=== PATIENT | male | born 1990 | race Caucasian/White ===

== ENCOUNTER → 2017-04-26 | Outpatient (CLI) | payer OTHER ==
--- NOTE | 2017-04-27 00:40 | MR ---
EXAMINATION TYPE: MR lumbar spine wo con DATE OF EXAM: 04/26/2017 COMPARISON: NONE HISTORY: Low back pain with Right leg painfor 2 months TECHNIQUE: Multiplanar, multisequence images of the lumbar spine were acquired. Lumbar vertebra have normal alignment. Disc spaces are fairly well-maintained. Lumbar nerve roots bessie ear normal. There is no compression fracture. There is posterior disc herniation at L5-S1 into the sp inal canal centrally and towards the right side. The lumbar neural foramina are fairly well-maintaine d. There is no paraspinal mass. I see no focal bone destruction. Sacroiliac joints appear intact. IMPRESSION: There is a small posterior central and right-sided L5-S1 lumbar disc herniation that could be clinica lly significant in this patient with right-sided leg pain. The lower lumbar spinal canal is somewhat small in this patient is probably at increased risk for acq uired spinal stenosis.
== END | disposition home or self-care (01) ==
LOC: RADMRIMAIN 19:52
PROVIDERS: ATTEND Physician Assistant
DX: M51.27 Other intervertebral disc displacement, lumbosacral region (principal)
CPT/HCPCS: 72148

== ENCOUNTER 2017-06-16 21:45 | Emergency (ER) | payer OTHER ==
[2017-06-16 22:04] VITALS: BP 148/99; PULSE 80; RESP 18; TEMP 98.3
[2017-06-16] MEDS ORDERED: methylPREDNISolone SOD SUCCI 125 MG/2 ML VIAL IM STA (22:24)
[2017-06-16] MEDS ORDERED: KETOROLAC 60 MG/2 ML VIAL IM STA (22:24)
[2017-06-16] MEDS ORDERED: ORPHENADRINE 30 MG/ML 2 ML VIAL IM STA (22:24)
--- NOTE | 2017-06-16 22:32 | ED ---
General Adult HPI - General Chief complaint: Back Pain/Injury Stated complaint: sciatic nerve pain Time Seen by Provider: 06/16/17 22:09 Source: patient, RN notes reviewed Mode of arrival: wheelchair Limitations: no limitations - History of Present Illness Initial comments: 26 yo male presents to the ER with cc of flare up of his back pain. Patient has been dealing with this back pain for the last few months. He states he has been to physicial therapy, had an MRI, and is currently waiting for an injection. He states he went to move a trailer tonight and his back pain flared up. He states that it shoots down his right leg. Patient states movement or lying makes it worse. Patient denies any loss of bowel or bladder function. There has been no specific trauma to the area. Patient states his home medications were not helping with the pain so he came here to be seen. Patient denies any other symptoms at this time. Patient denies any recent fever, chills, shortness of breath, chest pain, abdominal pain, nausea vomiting, dysuria or hematuria, constipation or diarrhea, headaches or visual changes, or any other current symptoms. - Related Data Previous Rx's Medication Instructions Recorded Orphenadrine [Norflex] 100 mg PO Q12H #10 tablet.er 06/16/17 predniSONE 50 mg PO DAILY #5 tab 06/16/17 Allergies Allergy/AdvReac Type Severity Reaction Status Date / Time No Known Allergies Allergy Verified 06/16/17 22:04 Review of Systems ROS Statement: Those systems with pertinent positive or pertinent negative responses have been documented in the HPI. ROS Other: All systems not noted in ROS Statement are negative. Past Medical History Additional Past Medical History / Comment(s): chronic back pain History of Any Multi-Drug Resistant Organisms: None Reported Past Surgical History: No Surgical Hx Reported Past Psychological History: No Psychological Hx Reported Smoking Status: Never smoker Past Alcohol Use History: Occasional Past Drug Use History: None Reported General Exam Limitations: no limitations General appearance: alert, in no apparent distress Neck exam: Present: normal inspection. Absent: tenderness, meningismus, lymphadenopathy Respiratory exam: Present: normal lung sounds bilaterally. Absent: respiratory distress, wheezes, rales, rhonchi, stridor Cardiovascular Exam: Present: regular rate, normal rhythm, normal heart sounds. Absent: systolic murmur, diastolic murmur, rubs, gallop, clicks Back exam: Present: normal inspection, full ROM, other (positive right leg raise ). Absent: tenderness Neurological exam: Present: alert, oriented X3 Psychiatric exam: Present: normal affect, normal mood Skin exam: Present: warm, dry, intact, normal color. Absent: rash Course Vital Signs 06/16/17 22:01 Temperature 98.3 F Pulse Rate 80 Respiratory 18 Rate Blood Pressure 148/99 O2 Sat by Pulse 98 Oximetry Medical Decision Making - Medical Decision Making 26-year-old male presents for what appears to be a flareup of his chronic back pain. Radiation of the right leg. This and was given injection he has had improvement. We'll start him on steroids and muscle relaxers for home. We discussed return parameters and follow-up and all questions. He stated he understood and he is agreement this plan. This time he will be discharged home. Disposition Clinical Impression: Sciatica, right side Disposition: HOME SELF-CARE Condition: Stable Instructions: Sciatica (ED), Lumbar Radiculopathy (ED) Additional Instructions: Please use medication as discussed. Please follow up with family doctor if symptoms have not improved over the next two days. Please return to the emergency room if your symptoms increase or worsen or for any other concerns. Prescriptions: Orphenadrine [Norflex] 100 mg PO Q12H #10 tablet.er predniSONE 50 mg PO DAILY #5 tab Referrals: Rakesh Reddy Jr, DO [Primary Care Provider] - 1-2 days Time of Disposition: 23:12
[2017-06-16] MEDS ORDERED: HYDROmorphone 1 MG/ML 1 ML SYRINGE IM STA (22:56)
[2017-06-16] MEDS ORDERED: HYDROmorphone 2 MG/ML 1 ML SYRINGE IM STA ×2 (23:02)
== END 2017-06-16 23:12 | disposition home or self-care (01) ==
LOC: EC 21:45
DX: M54.31 Sciatica, right side (principal)
CPT/HCPCS: 99283; 96372 ×4; J1170; J2360; J2930; J1885

== ENCOUNTER → 2017-07-29 | Outpatient (CLI) | payer OTHER ==
[2017-07-29 13:22] LABS: Basophils % (A) 1 %; Eosinophils # (A) 0.1 k/uL (0-0.7); Eosinophils % (A) 1 %; HCT 45.2 % (39.0-53.0); HGB 14.7 gm/dL (13.0-17.5); Lymphocytes # (A) 2.2 k/uL (1.0-4.8); Lymphocytes % (A) 30 %; MCHC 32.5 g/dL (31.0-37.0); MCV 92.2 fL (80.0-100.0); Mean Platelet Volume 6.8; Monocytes # (A) 0.6 k/uL (0-1.0); Monocytes % (A) 8 %; Neutrophils # (A) 4.2 k/uL (1.3-7.7); Neutrophils % (A) 58 %; Platelet Count 281 k/uL (150-450); RDW 11.4 % (11.5-15.5); WBC 7.2 k/uL (3.8-10.6)
--- NOTE | 2017-07-29 13:41 | XR ---
EXAMINATION TYPE: XR chest 2V DATE OF EXAM: 07/29/2017 COMPARISON: NONE TECHNIQUE: PA and lateral views submitted. HISTORY: Presurgical FINDINGS: The lungs are clear and there is no pneumothorax, pleural effusion, or focal pneumonia. IMPRESSION: 1. No acute process.
[2017-07-29 13:43] LABS: Anion Gap 12 mmol/L; Appearance,Urine Clear (Clear); Bilirubin,Urine Negative (Negative); Blood Urea Nitrogen 14 mg/dL (9-20); Blood,Urine Negative (Negative); Calcium 9.8 mg/dL (8.4-10.2); Carbon Dioxide 29 mmol/L (22-30); Chloride 101 mmol/L (98-107); Color,Urine Yellow; Glucose 97 mg/dL (74-99); Glucose,Urine (UA) Negative (Negative); Ketones,Urine Negative (Negative); Leukocyte Esterase,Urine Negative (Negative); Nitrite,Urine Negative (Negative); PH, Urine 7.5 (5.0-8.0); Potassium 5.1 mmol/L (3.5-5.1); Protein,Urine Trace (Negative); Sodium 142 mmol/L (137-145); Specific Gravity,Urine 1.016 (1.001-1.035); Urobilinogen,Urine <2.0 mg/dL (<2.0)
[2017-07-29 13:45] LABS: INR 1.2 (<1.2); Partial Thromboplastin Time 24.5 sec (22.0-30.0); Prothrombin Time 11.1 sec (9.0-12.0)
== END | disposition home or self-care (01) ==
LOC: LABPAT 12:25
PROVIDERS: ATTEND Orthopaedic Surgery Orthopaedic Surgery of the Spine
DX: Z01.812 Encounter for preprocedural laboratory examination (principal); M51.27 Other intervertebral disc displacement, lumbosacral region
CPT/HCPCS: 36415; 71046; 80048; 81003; 85025; 85610; 85730; 86850; 86900; 86901; 93005

== ENCOUNTER 2017-08-01 13:17 | Day surgery (SDC) | payer OTHER ==
[2017-07-27 11:25] VITALS: BMI 30.1
[~2017-08-01 13:17] MED LIST: BACITRACIN 50,000 UNIT, POLYMYXIN B 500,000 UNIT in SODIUM CHLORIDE 0.9% IRRIGATIO 1,00... IRRIGATION ONE; DEXAMETHASONE SOD PHOSPHATE 10 MG/ML 1 ML VIAL IV ONE; HYDROmorphone 0.5 MG/0.5 ML SYRINGE IVP PRN; LACTATED RINGERS 1,000 ML IV ONE; LACTATED RINGERS 1,000 ML IV SCH; ONDANSETRON 4 MG/2 ML VIAL IVP ONE; ceFAZolin IN SWFI 2 GM/20 ML SYRINGE IVP ONE
[2017-08-01 13:36] VITALS: RESP 16
[2017-08-01] MEDS ORDERED: LIDOCAINE 1% 20 ML VIAL (10MG/ML) FOR IV START INTRADERMA ONE (13:45)
[2017-08-01] MEDS ORDERED: ONDANSETRON 4 MG/2 ML VIAL IVP ONE (13:47)
[2017-08-01] MEDS ORDERED: DEXAMETHASONE SOD PHOS (MDV) 100 MG/10 ML VIAL IV ONE (13:49)
[2017-08-01] MEDS ORDERED: PROPOFOL 10 MG/ML 20 ML VIAL IV ONE (15:16)
[2017-08-01] MEDS ORDERED: fentaNYL (PF) 50 MCG/ML 2 ML AMP ONE (15:16)
[2017-08-01] MEDS ORDERED: LIDOCAINE 1% INJ 10MG/ML (20 ML MDV) ONE (15:16)
[2017-08-01] MEDS ORDERED: PHENYLEPHRINE-0.9% NACL SYG 1 MG/10 ML SYRINGE ONE (15:16)
[2017-08-01] MEDS ORDERED: ePHEDrine SULFATE/0.9% NACL/PF 50 MG/5 ML SYRINGE IV ONE (15:16)
[2017-08-01] MEDS ORDERED: ROCURONIUM BROMIDE 10 MG/ML 10 ML VIAL IV ONE (15:16)
[2017-08-01] MEDS ORDERED: MIDAZOLAM 2 MG/2 ML VIAL ONE (15:16)
[2017-08-01] MEDS ORDERED: GLYCOPYRROLATE 0.2 MG/ML 2 ML VIAL ONE (15:16)
[2017-08-01] MEDS ORDERED: NEOSTIGMINE 1 MG/ML 10 ML VIAL ONE (15:16)
[2017-08-01] MEDS ORDERED: SUCCINYLCHOLINE CHLORIDE 100 MG/5 ML SYR IV ONE (15:16)
[2017-08-01] MEDS ORDERED: GELATIN SPONGE,ABSORB (LARGE) 1 EACH SPONGE TOPICAL ONE (15:47)
[2017-08-01] MEDS ORDERED: methylPREDNISolone ACETATE 80 MG/ML 1 ML VIAL MISCELLANE ONE (15:47)
[2017-08-01] MEDS ORDERED: THROMBIN (BOVINE) 5,000 UNIT VIAL TOPICAL ONE (15:48)
[2017-08-01] MEDS ORDERED: BUPIVACAINE (PF) 0.25% 30 ML VIAL SQ ONE ×2 (15:48)
[2017-08-01] MEDS ORDERED: HYDROcodone/APAP 5-325MG 1 EACH TAB PO PRN ×2 (16:37)
[2017-08-01] MEDS ORDERED: BENZOCAINE/MENTHOL LOZENG 1 EACH LOZENGE MUCOUS MEM PRN (16:37)
[2017-08-01] MEDS ORDERED: MAGNESIUM HYDROXIDE 2,400 MG/10 ML CUP PO PRN (16:37)
[2017-08-01] MEDS ORDERED: DIAZEPAM 5 MG TAB PO PRN (16:37)
[2017-08-01] MEDS ORDERED: KETOROLAC 30 MG/ML 1 ML VIAL IVP PRN (16:37)
[2017-08-01] MEDS ORDERED: ONDANSETRON 4 MG/2 ML VIAL IVP PRN (16:37)
[2017-08-01] MEDS ORDERED: MORPHINE SULFATE 4 MG/ML SYRINGE IVP PRN ×2 (16:37)
[2017-08-01] MEDS ORDERED: IBUPROFEN 800 MG TAB PO PRN (16:42)
[2017-08-01] MEDS ORDERED: SODIUM CHLORIDE 0.9% 1,000 ML IV SCH (16:45)
--- NOTE | 2017-08-01 16:47 | P.OP ---
Date of Procedure: 08/01/17 Preoperative Diagnosis: Herniated nucleus pulposis L5-S1 Right lower extremity radiculopathy Postoperative Diagnosis: Same Anesthesia: GETA Pathology: none sent Condition: stable Disposition: PACU Description of Procedure: BRIEF OPERATIVE NOTE Preoperative Diagnosis: Herniated nucleus pulposis L5-S1, right lower extremity radiculopathy Postoperative Diagnosis: Same Procedure: Laminectomy and decompression L5-S1 Discectomy for decompression L5-S1 Use of fluoroscopic guidance Surgeon: Dr. Katz Oiler Helper: Chiki MAC who is present throughout the entire the case persistence during positioning, dissection, exposure, visualization, and all crucial elements of the case as well as closure. Anesthesia: General anesthesia Estimated blood loss:Approximately 50 mL Complications: None apparent Components implanted:None Disposition: To recovery room in good stable condition. OPERATIVE INDICATIONS The patient has been having issues in their lower back and lower extremities. his found have a right paracentral disc herniation L5-S1 which correlated well with his low back and lower extremity symptoms. The patient has been through conservative treatment. He is not having a prolonged benefit despite aggressive conservative treatment and was having great difficulty with his regular activities and work. We discussed various treatment options including surgery , and the patient wishes to proceed with surgery We discussed the risk, patient' s alternatives and benefits of surgery including but not limited to, risk of bleeding risk of infection, risk of need for further surgery, risk of decreased , loss of motion, loss of function, nerve damage, paralysis, heart attack, blindness and . OPERATIVE SUMMARY After discussing all the risks, patient alternatives and benefits at length, the patient elected to proceed with surgical intervention, signed informed consent, and presented for their procedure. The patient was seen and examined in the preoperative holding area and the surgical site was marked. The patient was given antibiotics and brought to the operating room. The patient was sedated and intubated by anesthesia in standard fashion. The patient was positioned on to the operating room table in a prone position on the appropriate frame which was well-padded and well molded. We were careful to pad any bony prominences and pressure points. We were careful to maintain the patient's cervical spine and good neutral alignment and position throughout. The patient was prepped and draped in a normal standard fashion. An appropriate timeout and keystone protocol performed. We were able to proceed with the surgery. Fluoroscopy was utilized to establish the appropriate level. The local wound area was infiltrated with local anesthetic. An incision was made at the midline longitudinally over the appropriate levels At L5-S1. Dissection was taken down subcutaneously to the level of the fascia which was split midline. Dissection was taken over the lamina. Intraoperative fluoroscopy was taken which showed a marker at the appropriate level At L5-S1. With the appropriate level positively confirmed, we were able to proceed with laminectomy. The wound was copiously irrigated and suctioned dry as had been done periodically throughout the case. I performed a laminectomy with a combination of curettes and a high-speed bur and Kerrison rongeurs. A small medial facetectomy was performed again further access. A partial foraminotomy was also performed. Portions of the ligamentum flavum were taken down to expose the dura and traversing nerve root. I was able to mobilize the traversing nerve root and gain access to the disc space. Note was made of obvious compression from the disc. there is extruded fragment as well as a large annular tear at L5-S1 posteriorly Protecting the soft tissue structures, a small annulotomy was established. I was able to perform discectomy and remove any extruded disc fragments and any loose fragments from within the disc itself. there is significant damage to the posterior annulus due to his injury and I had to remove significant portions of the posterior annulus. There is some disc desiccation noted. I tried to preserve the disc annulus that appeared stable. There were no further extruded fragments noted. There is no evidence of dural tear or leak. Good hemostasis maintained. The wound was copiously irrigated and suctioned dry. Good decompression and discectomy was noted. We were able to proceed with closure. The fascia was closed for a watertight closure. The subcuticular tissue was closed with absorbable suture. The wound was cleaned and dried and dressed with the appropriate dressing. The drapes were broken down. The patient was gently rolled back onto their hospital bed being careful to maintain their cervical spine and good neutral alignment and position. They were woken up by anesthesia, extubated, and brought to the recovery room in good stable condition. The patient will be admitted to the hospital for observation and for appropriate postoperative care, medical management and monitoring. We will continue to follow them closely about the postoperative course.
[2017-08-01] MEDS ORDERED: LACTATED RINGERS 1,000 ML IV ONE (16:48)
[2017-08-01] MEDS: MORPHINE SULFATE 4 MG/ML SYRINGE IVP ONE ×2 (17:07→17:16)
[2017-08-01 19:18] VITALS: TEMP 98.5
[2017-08-01 19:39] VITALS: BP 112/66; PULSE 78
[2017-08-02] MEDS ORDERED: ceFAZolin IN SWFI 2 GM/20 ML SYRINGE IVP SCH
[2017-08-02] MEDS ORDERED: GABAPENTIN 300 MG CAP PO SCH
--- NOTE | 2017-08-02 08:44 | FL ---
EXAMINATION TYPE: FL guidance operating room DATE OF EXAM: 08/01/2017 HISTORY: Flouroscopy time 4 seconds of fluoroscopy provided. IMPRESSION: 1. Fluoroscopy time.
[2017-08-02] MEDS ORDERED: SENNOSIDES-DOCUSATE SODIUM 1 EACH TAB PO SCH (09:00)
== END 2017-08-02 08:28 ==
LOC: OR 13:17 → 3SUR 16:38 → OR 08-02 08:28
PROVIDERS: ATTEND Orthopaedic Surgery Orthopaedic Surgery of the Spine
DX: M51.17 Intervertebral disc disorders with radiculopathy, lumbosacral region (principal); Z79.1 Long term (current) use of non-steroidal anti-inflammatories (NSAID); Z79.899 Other long term (current) drug therapy
CPT/HCPCS: 86900; 86901; 86850; 63047; J2250; J2270; J1040; J2710; J2405; J2001; J3010; J1885; J1100; J2370; J0330; J2704; J0690